=== PATIENT | female | born 1940 | race Caucasian/White ===

== ENCOUNTER 2019-12-10 06:40 | Day surgery (SDC) | payer OTHER, SELFPAY ==
[2019-12-10] MEDS ORDERED: SIMETHICONE 40 MG/0.6 ML ML ONE (07:09)
[2019-12-10] MEDS ORDERED: MEPERIDINE HCL/PF 100 MG/ML AMP ONE (07:10)
[2019-12-10] MEDS ORDERED: MIDAZOLAM HCL 5 MG/5 ML VIAL ONE (07:10)
[2019-12-10 12:09] VITALS: BP_SYST 112
== END 2019-12-10 10:30 | disposition home or self-care (01) ==
LOC: SMU 06:40 → SDS 06:40
PROVIDERS: ATTEND Internal Medicine Gastroenterology
DX: Z12.11 Encounter for screening for malignant neoplasm of colon (principal); Z85.038 Personal history of other malignant neoplasm of large intestine; K43.9 Ventral hernia without obstruction or gangrene; K64.8 Other hemorrhoids; E11.9 Type 2 diabetes mellitus without complications; I10 Essential (primary) hypertension; Z90.49 Acquired absence of other specified parts of digestive tract; E78.5 Hyperlipidemia, unspecified; Z88.0 Allergy status to penicillin; Z88.8 Allergy status to other drugs, medicaments and biological substances; Z98.0 Intestinal bypass and anastomosis status; Z20.828 Contact with and (suspected) exposure to other viral communicable diseases
CPT/HCPCS: 45378; 82962; 99152; G0378; J2175; J2250; U0003

== ENCOUNTER 2022-09-26 11:02 | Inpatient (IN) | payer OTHER ==
[~2022-09-26] VITALS: Ht 160 cm; Wt 80.7 kg
[~2022-09-26 11:02] MED LIST: ACETAMINOPHEN 325 MG TABLET PO PRN; ACETAMINOPHEN I.V. 1000 MG 100 ML IV ONE; ALBUTEROL SULFATE 0.083% 2.5 MG/3 ML VIAL.NEB INH SCH; BUPIVACAINE /PF 0.25% 30 ML VIAL INJ ONE; BUPIVACAINE LIPOSOME/PF 266 MG/20 ML VIAL INFIL ONE; CLINDAMYCIN PHOS 600 MG/ D5W 50 ML PREMIX IV ONE; HYDROcodone/ACETAMIN 5-325 MG TAB (NORCO/ VICODIN) PO PRN; HYDROmorphone 1 MG/ML INJ. CARTRIDGE IVP PRN; KETOROLAC TROMETHAMINE 30 MG VIAL IVP PRN; KETOROLAC TROMETHAMINE 30 MG VIAL ONE; LORazepam 2 MG/ML VIAL IVP PRN; MEPERIDINE HCL/PF 25 MG/ML DISP.SYRIN IVP PRN; METOCLOPRAMIDE HCL 10 MG/2 ML VIAL IVP PRN; MIDAZOLAM HCL/PF 2 MG/2 ML SYRINGE ONE; NACL 0.9% 1,000 ML IV SCH; NS IRRIG SOLN 1000 ML IR ONE; ONDANSETRON HCL 4 MG/2 ML VIAL IVP PRN; ONDANSETRON HCL 4 MG/2 ML VIAL ONE; PROPOFOL 200MG/ 20ML VIAL (DIPRIVAN) IV ONE; ROCURONIUM BROMIDE 10 MG/ML (ZEMURON) ONE; SEVOFLURANE 15 MIN GAS INH ONE; SUCCINYLCHOLINE CHLORIDE 20 MG/ML(QUELICIN) ONE
[2022-09-26] MEDS ORDERED: INSULIN REGULAR, HUMAN 100 UNITS/ML, 3 ML VIAL (humuLIN R) SUBCUT PRN (12:30)
[2022-09-26 13:02] VITALS: BP_SYST 124; PULSE 75; RESP 16; TEMP 96.6; O2SAT 96
[2022-09-26 16:00] VITALS: BP_SYST 126; PULSE 79; RESP 18; TEMP 97; O2SAT 96
[2022-09-26 16:33] VITALS: BP_SYST 126; PULSE 98; O2SAT 98
[2022-09-26] MEDS ORDERED: MELATONIN 3 MG TABLET PO PRN (21:15)
[2022-09-26 22:28] VITALS: BP_SYST 135; PULSE 76; RESP 16; TEMP 97; O2SAT 96
[2022-09-26 23:37] VITALS: O2SAT 96
[2022-09-27] VITALS: BP_SYST 129; PULSE 71; RESP 16; TEMP 96.4; O2SAT 96
[2022-09-27 08:00] VITALS: BP_SYST 139; PULSE 73; RESP 17; TEMP 97.2; O2SAT 95
[2022-09-27] MEDS ORDERED: BENAZEPRIL HCL Non-Formulary 10 MG TABLET PO SCH (09:00)
[2022-09-27 10:56] VITALS: BP_SYST 150; PULSE 72; RESP 18; TEMP 97; O2SAT 96
[2022-09-27 15:49] VITALS: BP_SYST 145; PULSE 70; RESP 18; TEMP 97.1; O2SAT 99
== END 2022-09-27 19:30 | disposition home or self-care (01) | DRG 355 ==
LOC: SMU 11:02 → SDS 11:02 → SMU 11:11
PROVIDERS: ADMIT Surgery; ATTEND Surgery
PROC: 0WUF0JZ Supplement Abdominal Wall with Synthetic Substitute, Open Approach (ICD-10-PCS; principal; 2022-09-26 07:46)
DX: K43.2 Incisional hernia without obstruction or gangrene (principal)
CPT/HCPCS: 82962; 87081; 88302; C1781; C9290; J0330; J1885; J2405; J2704; J3465; J3490; J7120